=== PATIENT | female | born 1995 | race Caucasian/White ===

== ENCOUNTER 2023-03-27 11:43 | Outpatient (CLI) | payer MEDICAID ==
[2023-03-27 14:58] LABS: ESTIMATED AVERAGE GLUCOSE 82 mg/dL (70-100); HEMOGLOBIN A1c% 4.5 % (4.27-6.07)
[2023-03-27 15:06] LABS: BASOPHILS % (AUTO) 1.1 %; EOSINOPHILS # (AUTO) 0.1 10^3/uL (0.0-0.7); EOSINOPHILS % (AUTO) 2.3 %; HCT - HEMATOCRIT 43.6 % (37.0-47.0); HGB - HEMOGLOBIN 12.2 g/dL (12.0-16.0); LYMPHOCYTES # (AUTO) 1.3 10^3/uL (1.5-3.5); LYMPHOCYTES % (AUTO) 35.8 %; MEAN CORPUSCULAR HEMOGLOBIN 24.9 pg (27.0-31.0); MEAN CORPUSCULAR VOLUME 89.2 fL (81.0-99.0); MONOCYTES # (AUTO) 0.4 10^3/uL (0.0-1.0); MONOCYTES % (AUTO) 11.9 %; NEUTROPHILS # (AUTO) 1.7 10^3/uL (1.5-6.6); NEUTROPHILS % (AUTO) 48.6 %; PLT - PLATELET COUNT 200 10^3/uL (130-450); RED BLOOD COUNT 4.89 10^6/uL (4.20-5.40); RED CELL DISTRIBUTION WIDTH 13.5 % (12.0-15.0); WHITE BLOOD COUNT 3.5 x10^3/uL (4.8-10.8)
[2023-03-27 15:45] LABS: ALBUMIN 4.2 g/dL (3.2-5.5); ALBUMIN/GLOBULIN RATIO 1.6 (1.0-2.2); ALKALINE PHOSPHATASE 31 IU/L (42-121); ALT ALANINE AMINOTRANSFERASE 12 IU/L (10-60); AST ASPARTATE AMINOTRANSFERASE 15 IU/L (10-42); BILIRUBIN,TOTAL 0.5 mg/dL (0.2-1.0); BUN - BLOOD UREA NITROGEN 6 mg/dL (6-20); CALCIUM 9.1 mg/dL (8.5-10.3); CARBON DIOXIDE - CO2 27 mmol/L (21-32); CHLORIDE 107 mmol/L (101-111); CHOL/HDL RATIO 2.3 (<4.4); CHOLESTEROL 115 mg/dL; CREATININE 0.6 mg/dL (0.6-1.3); GFR - MDRD 120 (>89); GLUCOSE 80 mg/dL (74-104); HDL CHOLESTEROL 49 mg/dL; LDL CHOLESTEROL,CALCULATED 46 mg/dL; LDL/HDL RATIO 0.9 (<4.4); POTASSIUM 3.5 mmol/L (3.5-4.5); SODIUM 139 mmol/L (135-145); TOTAL PROTEIN 6.9 g/dL (6.4-8.9); TRIGLYCERIDES 100 mg/dL (48-352); VLDL CHOLESTEROL 20 mg/dL
[2023-03-27 16:01] LABS: SLIDE REVIEW? Indicated
[2023-03-27 16:02] LABS: PLATELET ESTIMATE, MANUAL NORMAL (130-450,000) (NORMAL); PLATELET MORPHOLOGY NORMAL APPEARANCE (NORMAL)
== END 2023-03-27 11:44 | disposition home or self-care (01) ==
LOC: LAB.S 11:43
PROVIDERS: ATTEND Physician Assistant Medical
DX: Z13.9 Encounter for screening, unspecified (principal); Z79.52 Long term (current) use of systemic steroids
CPT/HCPCS: 36415; 80053; 80061; 83036; 83721; 85025

== ENCOUNTER 2023-08-08 12:45 | Outpatient (CLI) | payer MEDICAID ==
[2023-08-08 19:54] LABS: BASOPHILS % (AUTO) 1.1 %; EOSINOPHILS # (AUTO) 0.1 10^3/uL (0.0-0.7); EOSINOPHILS % (AUTO) 2.8 %; HCT - HEMATOCRIT 39.6 % (37.0-47.0); HGB - HEMOGLOBIN 12.4 g/dL (12.0-16.0); LYMPHOCYTES % (AUTO) 27.5 %; MEAN CORPUSCULAR HEMOGLOBIN 27.9 pg (27.0-31.0); MEAN CORPUSCULAR HGB CONC 31.3 g/dL (32.0-36.0); MEAN PLATELET VOLUME 10.4 fL (7.9-10.8); MONOCYTES # (AUTO) 0.5 10^3/uL (0.0-1.0); MONOCYTES % (AUTO) 13.9 %; NEUTROPHILS % (AUTO) 54.1 %; PLT - PLATELET COUNT 168 10^3/uL (130-450); RED BLOOD COUNT 4.45 10^6/uL (4.20-5.40); RED CELL DISTRIBUTION WIDTH 14.8 % (12.0-15.0); WHITE BLOOD COUNT 3.6 x10^3/uL (4.8-10.8)
[2023-08-08 20:00] LABS: BILIRUBIN,URINE NEGATIVE (NEGATIVE); GLUCOSE, URINE (UA) NEGATIVE (NEGATIVE); KETONES,URINE (UA) NEGATIVE (NEGATIVE); LEUKOCYTE ESTERASE, URINE NEGATIVE (NEGATIVE); NITRITE,URINE NEGATIVE (NEGATIVE); OCCULT BLOOD,URINE NEGATIVE (NEGATIVE); PROTEIN,URINE NEGATIVE (NEGATIVE); UROBILINOGEN,URINE 0.2 (NORMAL) E.U./dL (NORMAL)
[2023-08-08 20:03] LABS: CLARITY,URINE CLEAR (CLEAR)
[2023-08-08 20:18] LABS: BACTERIA,URINE Few /HPF (None Seen); MUCUS,URINE Few Strands; RBC,URINE 0-5 /HPF (0-5); SQUAMOUS EPITHELIAL CELL,UR FEW Squamous (<= Few); WBC,URINE 0-3 /HPF (0-5)
[2023-08-08 20:20] LABS: PROTEIN/CREATININE RATIO,URINE 0.1 (<=0.2)
[2023-08-08 20:24] LABS: ALBUMIN 4.4 g/dL (3.2-5.5); ALBUMIN/GLOBULIN RATIO 1.8 (1.0-2.2); BILIRUBIN,TOTAL 0.7 mg/dL (0.2-1.0); CALCIUM 9.2 mg/dL (8.5-10.3); CREATININE 0.6 mg/dL (0.6-1.3); CRP HIGH SENSITIVITY 2.09 mg/L; POTASSIUM 3.5 mmol/L (3.5-4.5); TOTAL PROTEIN 6.8 g/dL (6.4-8.9)
[2023-08-10 04:09] LABS: COMPLEMENT C3 94 mg/dL (82-167); COMPLEMENT C4 16 mg/dL (12-38); IMMUNOGLOBULIN G (IGG) 1184 mg/dL (586-1602)
== END 2023-08-08 12:46 | disposition home or self-care (01) ==
LOC: LAB.S 12:45
PROVIDERS: ATTEND Internal Medicine Rheumatology
DX: D89.84 IgG4-related disease (principal); R76.8 Other specified abnormal immunological findings in serum; N12 Tubulo-interstitial nephritis, not specified as acute or chronic
CPT/HCPCS: 36415; 80053; 81001; 81599; 82570; 82784; 84156; 85025; 85651; 86141; 86160; 87086

== ENCOUNTER 2023-10-10 13:49 | Outpatient (CLI) | payer MEDICAID ==
[2023-10-10 20:01] LABS: EOSINOPHILS # (AUTO) 0.1 10^3/uL (0.0-0.7); HGB - HEMOGLOBIN 12.7 g/dL (12.0-16.0); LYMPHOCYTES # (AUTO) 1.1 10^3/uL (1.5-3.5); LYMPHOCYTES % (AUTO) 28.1 %; MEAN CORPUSCULAR HEMOGLOBIN 28.3 pg (27.0-31.0); MEAN CORPUSCULAR HGB CONC 31.8 g/dL (32.0-36.0); MEAN CORPUSCULAR VOLUME 89.1 fL (81.0-99.0); MONOCYTES # (AUTO) 0.5 10^3/uL (0.0-1.0); MONOCYTES % (AUTO) 13.6 %; NEUTROPHILS # (AUTO) 2.2 10^3/uL (1.5-6.6); NEUTROPHILS % (AUTO) 54.8 %; PLT - PLATELET COUNT 177 10^3/uL (130-450); RED BLOOD COUNT 4.49 10^6/uL (4.20-5.40); RED CELL DISTRIBUTION WIDTH 13.1 % (12.0-15.0)
[2023-10-10 20:02] LABS: BILIRUBIN,URINE NEGATIVE (NEGATIVE); GLUCOSE, URINE (UA) NEGATIVE (NEGATIVE); KETONES,URINE (UA) NEGATIVE (NEGATIVE); LEUKOCYTE ESTERASE, URINE NEGATIVE (NEGATIVE); NITRITE,URINE NEGATIVE (NEGATIVE); OCCULT BLOOD,URINE NEGATIVE (NEGATIVE); PROTEIN,URINE NEGATIVE (NEGATIVE); UROBILINOGEN,URINE 0.2 (NORMAL) E.U./dL (NORMAL)
[2023-10-10 20:15] LABS: CLARITY,URINE CLEAR (CLEAR)
[2023-10-10 20:21] LABS: CREATININE,URINE 81.6 mg/dL; PROTEIN/CREATININE RATIO,URINE 0.1 (<=0.2)
[2023-10-10 20:26] LABS: ALBUMIN 4.5 g/dL (3.2-5.5); ALBUMIN/GLOBULIN RATIO 1.7 (1.0-2.2); BILIRUBIN,TOTAL 0.7 mg/dL (0.2-1.0); CALCIUM 9.3 mg/dL (8.5-10.3); CREATININE 0.7 mg/dL (0.6-1.3); CRP HIGH SENSITIVITY 2.43 mg/L; POTASSIUM 3.8 mmol/L (3.5-4.5); TOTAL PROTEIN 7.2 g/dL (6.4-8.9)
[2023-10-10 20:36] LABS: THYROID STIMULATING HORMONE 2.32 uIU/mL (0.34-5.60)
== END 2023-10-10 13:50 | disposition home or self-care (01) ==
LOC: LAB.S 13:49
PROVIDERS: ATTEND Internal Medicine Rheumatology
DX: R76.8 Other specified abnormal immunological findings in serum (principal); E06.3 Autoimmune thyroiditis; D89.84 IgG4-related disease; N12 Tubulo-interstitial nephritis, not specified as acute or chronic; Z79.899 Other long term (current) drug therapy
CPT/HCPCS: 36415; 80053; 81001; 81003; 81599; 82570; 82784; 84156; 84443; 85025; 85651; 86141; 87086

== ENCOUNTER 2023-11-06 15:23 | Emergency (ER) | payer MEDICAID ==
[2023-11-06 15:41] VITALS: BP 128/84; O2SAT 99
[2023-11-06] MEDS: PROPARACAINE 0.5% OPHTH DROPS 15 ML EACHEYE STA (16:36)
--- NOTE | 2023-11-06 18:21 | ED Physician Documentation ---
PD HPI OPHTHO - Stated complaint Stated Complaint: BILAT EYE PX - Chief complaint Chief Complaint: Heent - Additional information Additional information: 28-year-old female presents emergency department for bilateral eye pain. Patient says that she was seen by Dr. 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 She has been getting rituximab infusions yesterday which her third infusion and she woke today with severe bilateral eye pain and irritation. She said she has no vision changes but she feels like someone dumped thing in her eyes and now there is severe itching and irritation. 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 : None HEENT: None Psych: Depression, Anxiety, Panic attacks Musculoskeletal: Rheumatoid arthritis, Other Derm: None - Past Surgical History Past Surgical History: Yes Ortho: Other - Present Medications Home Medications: Ambulatory Orders Medication Instructions Recorded Confirmed Gabapentin [Neurontin] 100 mg PO DAILY 11/06/23 11/06/23 clonazePAM [Clonazepam] 0.5 mg PO BID PRN 11/06/23 11/06/23 - Allergies Allergies/Adverse Reactions: Allergies Allergy/AdvReac Type Severity Reaction Status Date / Time Penicillins Allergy Rash Verified 11/06/23 15:27 sulfamethoxazole Allergy Rash Verified 11/06/23 15:27 [From Bactrim] trimethoprim [From Bactrim] Allergy Rash Verified 11/06/23 15:27 fluoxetine AdvReac Unknown Verified 11/06/23 15:28 prednisone AdvReac Nausea Verified 11/06/23 15:27 - Social History Does the pt smoke?: No Smoking Status: Never smoker Does the pt drink ETOH?: Yes Does the pt have substance abuse?: No - Immunizations Immunizations are current?: Yes - POLST Patient has POLST: No PD ED PE NORMAL - Vitals Vital signs reviewed: Yes - General General: Alert and oriented X 3, Well developed/nourished, Other (Appears very uncomfortable holding eyes) PD ED PE EXPANDED - Eyes Eyes: Visual acuity - see nn, PERRL, Right eye, Left eye, Eyelid erythema, No eyelid FB (everted), Fluorescein uptake, Other (Left IOP 17, rt IOP 20. Fluroscein uptake to the lower portion of both corneas as well as large portion of sclera). No: Exudate Results - Vitals Vitals: Vital Signs - 24 hr 11/06/23 15:28 Temperature 37.2 C Heart Rate 92 Respiratory 18 Rate Blood Pressure 128/84 H O2 Saturation 99 Oxygen O2 Source Room air PD Medical Decision Making - ED course ED course: 28 yo female presents to the ER for severe bilateral eye pain and irritation. No pain with extraocular movement. IOP both eyes within normal range, bilateral eye pH 7.0, bilateral sclera severely injected with erythema to eyelids. No vision changes, no drainage to either eyes. There was a moderate to large amount of Fluorescein uptake to both scleras and a large amount to bilateral corneas at the bottom of both corneas. I spoke with Dr. Morrissey, pts Doctor at [facility] who said she had never heard of this being a side effect from Rituximab and suggested calling opthamology. I called Dr. Rah Estrada [facility] central office supervisor who suggested that given patient complex medical history patient present to [facility] ER where there is 11/12 opthamology in house for evaluation tonight. Pt was given Tylenol, Ibuprofen and ice to support her eye pain for the ride there. I attempted to call [facility] emergency department and I was able to speak with someone but unable to get hold of any of the physicians to give report so patient was told to just present with discharge packet to the emergency department for further evaluation her and her father understand this and she is being driven by her mother. All questions answered patient safe for discharge. Departure - Departure Disposition: 01 Home, Self Care Clinical Impression: Corneal abrasion of both eyes Instructions: Corneal Injury Comments: Thank you for trusting us with your care. I do believe that you should go to [facility] and check into the emergency department for an emergent ophthalmology evaluation. Forms: PCP List Discharge Date/Time: 11/06/23 18:33
[2023-11-06] MEDS: IBUPROFEN 800 MG TABLET PO STA (18:30)
[2023-11-06] MEDS: ACETAMINOPHEN 500 MG TABLET PO STA (18:30)
== END 2023-11-06 18:33 | disposition home or self-care (01) ==
LOC: ED 15:23
DX: S05.02XA Injury of conjunctiva and corneal abrasion without foreign body, left eye, initial encounter (principal); S05.01XA Injury of conjunctiva and corneal abrasion without foreign body, right eye, initial encounter; X58.XXXA Exposure to other specified factors, initial encounter; M35.9 Systemic involvement of connective tissue, unspecified; Z79.899 Other long term (current) drug therapy
CPT/HCPCS: 99284; A9270; J3490